=== PATIENT | male | born 1980 ===

== ENCOUNTER 2025-07-09 06:23 | Day surgery (SDC) | payer OTHER, SELFPAY | END 2025-07-09 09:10 | disposition home or self-care (01) | LOC: GI 06:23 | PROVIDERS: ATTENDING PHYSICIAN Internal Medicine Gastroenterology | DX: Z12.11 Encounter for screening for malignant neoplasm of colon (principal); K64.8 Other hemorrhoids; Z83.719 Family history of colon polyps, unspecified | CPT/HCPCS: G0105 ==